=== PATIENT | female | born 1985 | race Caucasian/White ===

== ENCOUNTER 2022-09-03 08:39 | Emergency (ER) | payer SELFPAY ==
[~2022-09-03] VITALS: Ht 154.9 cm; Wt 56.7 kg
[2022-09-03 08:48] VITALS: BP 98/54
--- NOTE | 2022-09-03 09:13 | NUR ---
Flu and concepción swab collected and handed to director labor standards.
--- NOTE | 2022-09-03 09:27 | NUR ---
37F presents to ED with c/o Dizziness, SOB, Chest tightness since last night, and cough x3 days. Pt reports a dry, nonproductive cough since Friday, chest tightness and feeling SOB, dizzy, and chills last night and this morning. Pt reports trying breathing treatments and inhaler meds this morning with mild relief. Pt denies fevers, n/v/d, UTI symptoms, or ABD pain.
[2022-09-03] MEDS ORDERED: DEXAMETHASONE 10 MG/ML VIAL IM ONE (09:55)
[2022-09-03] MEDS ORDERED: PRON INH (10:01)
[2022-09-03] MEDS ORDERED: PROM473S5 PO (10:01)
[2022-09-03] MEDS ORDERED: LEVA0.6318 INH (10:01)
[2022-09-03] MEDS ORDERED: PRED20TA5 PO (10:01)
--- NOTE | 2022-09-03 10:10 | NUR ---
Patient discharged with v/s stable. Written and verbal after care instructions asthma, viral illness given and explained. Patient alert, oriented and verbalized understanding of instructions. Ambulatory with steady gait. All questions addressed prior to discharge. ID band removed. Patient advised to follow up with PMD. Rx of Levalbuterol HCI, prednisone, promethazine/dextromethorphan, albuterol sulfate given. Patient educated on indication of medication including possible reaction and side effects. Opportunity to ask questions provided and answered.
== END 2022-09-03 10:12 | disposition home or self-care (01) ==
LOC: MED 08:39
DX: B34.9 Viral infection, unspecified (principal); Z20.822 Contact with and (suspected) exposure to COVID-19; J45.909 Unspecified asthma, uncomplicated; Z79.899 Other long term (current) drug therapy
CPT/HCPCS: 87426; 87804; 96372; 99283; J1100